=== PATIENT | male | born 1980 | race African-American/Black ===

== ENCOUNTER 2018-12-28 02:22 | Emergency (ER) | payer SELFPAY ==
[~2018-12-28] VITALS: Ht 177.8 cm; Wt 70.8 kg
[2018-12-28 02:25] VITALS: BP 125/83
--- NOTE | 2018-12-28 02:32 | NUR ---
PT AMBULATES FROM TRIAGE TO ROOM WITH STEADY GAIT.
[2018-12-28] MEDS ORDERED: AMOXICILLIN/CLAV 875-125MG TABLET PO STA (03:04)
[2018-12-28] MEDS ORDERED: AMOXICILLIN/CLAV 875-125MG TABLET ONE (03:05)
[2018-12-28] MEDS ORDERED: OXYcodone/APAP 5/325MG TABLET ONE (03:06)
--- NOTE | 2018-12-28 03:07 | NUR ---
pt medicated for pain per mar.
[2018-12-28] MEDS ORDERED: OXYcodone/APAP 5/325MG TABLET PO ONE (03:30)
== END 2018-12-28 05:17 | disposition home or self-care (01) ==
LOC: ED 05:08
DX: K02.9 Dental caries, unspecified (principal)
CPT/HCPCS: 99283

== ENCOUNTER 2019-04-17 04:26 | Emergency (ER) | payer MEDICAID, OTHER ==
[~2019-04-17] VITALS: Ht 180.3 cm; Wt 75.4 kg
[2019-04-17 04:28] VITALS: BP 137/85
== END 2019-04-17 05:33 | disposition home or self-care (01) ==
LOC: ED 05:21
DX: K02.9 Dental caries, unspecified (principal)
CPT/HCPCS: 96372; 99283; J1885

== ENCOUNTER 2021-05-24 11:53 | Emergency (ER) | payer MEDICAID ==
[~2021-05-24] VITALS: Ht 177.8 cm; Wt 72.7 kg
[2021-05-24 12:08] VITALS: BP 100/58
[2021-05-24] MEDS ORDERED: CEFTRIAXONE 1,000 MG IM ONE (12:30)
[2021-05-24] MEDS ORDERED: CEFTRIAXONE 1,000 MG ONE (13:08)
== END 2021-05-24 13:15 | disposition home or self-care (01) ==
LOC: ED 13:10
DX: N34.1 Nonspecific urethritis (principal)
CPT/HCPCS: 87491; 87591; 96372; 99283; J0696